=== PATIENT | male | born 1975 | race Caucasian/White ===

== ENCOUNTER 2020-11-30 01:37 | Inpatient (IN) | payer OTHER ==
[2020-11-30] VITALS (8 sets, daily range): BP systolic 114–148; BP diastolic 76–99
[~2020-11-30] VITALS: Ht 162.6 cm; Wt 81.6 kg
[2020-11-30 03:12] LABS: ABSOLUTE LYMPHOCYTES 0.6 thou/uL (0.8-5.3); ABSOLUTE MONOCYTES 0.4 thou/uL (0.0-1.2); ABSOLUTE NEUTROPHILS 5.4 thou/uL (1.6-8.1); BASOPHILS 0.7 %; EOSINOPHILS 0.1 %; HEMATOCRIT 42.9 % (42.0-52.0); HEMOGLOBIN 15.1 gm/dL (14.0-18.0); LYMPHOCYTES 9.7 %; MCH 31.9 pg (26.0-34.0); MCHC 35.3 g/dL (28.0-37.0); MCV 90.4 fL (80.0-100.0); MONOCYTES 6.1 %; MPV 7.1 fl. (7.2-11.1); NUCLEATED RBCS 0 /100WBC; PLATELET COUNT* 184 thou/uL (150-400); POLYS 83.4 %; RBC 4.75 mil/uL (4.50-6.00); RDW-CV 13.7 % (10.5-14.5); WBC 6.4 thou/uL (4.0-11.0)
[2020-11-30 03:25] LABS: ANION GAP < 0 mmol/L (7-16); BUN 13 mg/dL (7-18); CALCIUM 8.4 mg/dL (8.5-10.1); CHLORIDE 98 mmol/L (98-107); CO2 28 mmol/L (21-32); CREATININE 1.2 mg/dL (0.6-1.3); GLUCOSE 119 mg/dL (70-99); POTASSIUM 3.9 mmol/L (3.5-5.1)
[2020-11-30 03:29] LABS: ALBUMIN 4.1 g/dL (3.4-5.0); ALKALINE PHOSPHATASE 81 U/L (46-116); MAGNESIUM 2.1 mg/dL (1.8-2.4); SGOT 26 U/L (15-37); SGPT 29 U/L (30-65); TOTAL BILIRUBIN 0.7 mg/dL (<0.1-1.0); TOTAL PROTEIN 7.3 g/dL (6.4-8.2)
[2020-11-30 03:31] LABS: SODIUM 112 mmol/L (136-145)
--- NOTE | 2020-11-30 09:20 | NUR ---
Called pts cell with no answer. Left Vm to identify CM assessment need. Asked call Cm when able and CM will continue to follow until reached. No next of kin or emergency contact listed. No other admissions to [facility] to check for this information.
--- NOTE | 2020-11-30 09:44 | EKG ---
[place] [address] ELECTROCARDIOGRAM REPORT Name: RENEE ROBLES Room: [place] [address] ADM IN [facility]#: [id number] Admission: 11/30/20 Attend Phys: Samira Navarro MD Discharge: Date of : 79 Date of Service: 11/30/20201 Report #: [id number] THIS REPORT FOR: //name// [facility] ED Test Date: 2020-11-30 Test Time: 02:02:59 Pat Name: RENEE ROBLES Department: Room: [facility] Gender: M [employer] Recruiter: MARIPOSA : 1975 Requested By: Lindsey Austin Order Number: [id number] MD: Nazario Hawk Measurements Intervals [place] Rate: 79 P: 45 UT: 130 QRS: 52 QRSD: 94 T: 17 QT: 368 QTc: 422 Interpretive Statements Sinus rhythm No previous ECG available for comparison Electronically Signed On 11-30-2020 9:44:34 CDT by Nazario Hawk [email or web address] <ELECTRONICALLY SIGNED> By: Nazario Hawk MD, [facility] 11/30/20 0944 [id number] Nazario Hawk MD, [facility] /EPI
[2020-11-30 10:26] LABS: CALCIUM 7.9 mg/dL (8.5-10.1); CREATININE 1.1 mg/dL (0.6-1.3); POTASSIUM 4.1 mmol/L (3.5-5.1)
--- NOTE | 2020-11-30 17:50 | NUR ---
RECEIVED REPORT FROM PATTI LOMAX. PT ARRIVED ON UNIT AROUND 1235. VS CHARTED. PT UP ADLIB. ROOM AIR. ADMIT DONE PRIOR TO COMING TO DPT. ISOLATION INTACT. MEDS GIVEN PER JUN. HOURLY ROUNDING PERFORMED. CALL LIGHT WITH INREACH. WILL CONTINUE TO MONITOR. IV INTACT. HEART MONITOR ATTACHED.
[2020-12-01 03:55] VITALS: BP 129/80
--- NOTE | 2020-12-01 04:07 | NUR ---
PT SLEPT MOST OF SHIFT. ASSESSMENT DOCUMENTED. MEDS GIVEN PER E-MAR. IV PATENT. NO REPORTS OF PAIN. PT ON ROOM AIR THIS SHIFT. PT ABLE TO MAKE NEEDS KNOWN. WILL CONTINUE WITH PLAN OF CARE.
[2020-12-01 04:39] LABS: HEMATOCRIT 41.1 % (42.0-52.0); HEMOGLOBIN 14.5 gm/dL (14.0-18.0); MCH 32.1 pg (26.0-34.0); MCHC 35.4 g/dL (28.0-37.0); MCV 90.8 fL (80.0-100.0); MPV 7.1 fl. (7.2-11.1); RBC 4.53 mil/uL (4.50-6.00); RDW-CV 13.5 % (10.5-14.5)
[2020-12-01 05:00] LABS: ALBUMIN 3.8 g/dL (3.4-5.0); CALCIUM 8.6 mg/dL (8.5-10.1); MAGNESIUM 2.3 mg/dL (1.8-2.4); POTASSIUM 4.3 mmol/L (3.5-5.1); TOTAL BILIRUBIN 0.6 mg/dL (<0.1-1.0); TOTAL PROTEIN 7.5 g/dL (6.4-8.2)
[2020-12-01 06:02] LABS: URINE BILIRUBIN NEGATIVE (Negative); URINE BLOOD NEGATIVE (Negative); URINE CLARITY CLEAR; URINE COLOR YELLOW; URINE GLUCOSE-RANDOM NEGATIVE (Negative); URINE KETONES 1+ (Negative); URINE LEUKOCYTES-REFLEX NEGATIVE (Negative); URINE NITRITE-REFLEX NEGATIVE (Negative); URINE PROTEIN TRACE (Negative); URINE UROBILINOGEN 0.2 E.U./dl (0.2-1.0)
[2020-12-01 08:00] VITALS: BP 141/85
[2020-12-01 11:32] VITALS: BP 143/90
[2020-12-01] MEDS ORDERED: LEVOFLOXACIN500 MG PO (13:17)
[2020-12-01] MEDS ORDERED: PREDNISONE 10 M10 MG PO (13:22)
[2020-12-01] MEDS ORDERED: TESSALON PERLE100 M1 PO (13:24)
[2020-12-01] MEDS ORDERED: VENTOLIN HFA INH8 GM INH (13:24)
[2020-12-01 13:33] VITALS: BP 143/90
--- NOTE | 2020-12-01 14:16 | NUR ---
RECEIVED REPORT AROUND 0715. ASSUMED CARE. VS AND ASSESSMENT CHARTED. IV INTACT THIS AM. HEART MONITOR ATTACHED AT SR. MEDS GIVEN PER JUN. HOURLY ROUNDING PERFORMED. DISCHARGE ORDERS RECEIVED. DISCHARGE PACKET GIVEN TO PT. COMMUNICATED UNDERSTANDING. IV TAKEN OUT. HEART MONITOR OFF. PT LEFT VIA WHEELCHAIR OFF UNIT WITH NURSING STAFF AND ALL BELONGINGS AT 1410.
--- NOTE | 2020-12-01 14:59 | NUR ---
CM ASSESSMENT: PT ADMITTED COVID POSITIVE AND CURRENTLY UNDER ENHANCED PRECAUTIONS. PT A&O, INDEPENDENT WITH ADL'S, ACTIVE AND WORKS OUTSIDE THE HOME. PT RESIDES AT HOME WITH SPOUSE. PT USES 0 DME, AND HAS 0 HX OF HH OR SNF. CM WILL REMAIN AVAILABLE TO ASSIST AND FOLLOW NEEDED. BARBRA (PT'S SPOUSE) PHONE: [phone]
== END 2020-12-01 14:10 | disposition home or self-care (01) | DRG 177 ==
LOC: M.ERS 01:37 → M.ORTHSURG 04:09 → M.TBA-ER 04:09 → M.ORTHSURG 12:38
PROVIDERS: Emergency Medicine; Internal Medicine; ADMIT Family Medicine; ATTEND Family Medicine
DX: U07.1 COVID-19 (principal); J12.82 Pneumonia due to coronavirus disease 2019; E87.1 Hypo-osmolality and hyponatremia; Z88.1 Allergy status to other antibiotic agents